=== PATIENT | male | born 1950 | race Caucasian/White ===

== ENCOUNTER 2017-07-28 19:17 | Emergency (ER) | payer MEDICARE ==
[~2017-07-28] VITALS: Ht 175.3 cm; Wt 88.5 kg
[2017-07-28 20:45] VITALS: BP 145/80
[2017-07-28] MEDS ORDERED: DEXT15LI7 PO (21:30)
[2017-07-28] MEDS ORDERED: BENZ100C PO (21:30)
--- NOTE | 2017-07-28 21:30 | PHYS DOC ---
Adult General Chief Complaint Chief Complaint: COUGH HPI HPI Patient is a 67-year-old male presents to the emergency department complaints of persisting cough. Cough is nonproductive. Patient is already on antibiotics for the last 3 days but the cough remains persistent. Patient has no other complaints. Patient denies any weight wheezing or shortness of air, his main issue is that he is having trouble sleeping because of the cough. Review of Systems Review of Systems Constitutional: Denies fever or chills [] HENT: As per history of present illness. No headache, no eye pain, no ear pain[] Respiratory: As per history of present illness Cardiovascular: No chest pain GI: Denies abdominal pain, Musculoskeletal: Denies back pain or joint pain or extremity pain or swelling Integument: Denies rash or skin lesions [] Neurologic: Denies headache, focal weakness or sensory changes [] All other systems were reviewed and found to be within normal limits, except as documented in this note. Allergies Allergies Allergies Coded Allergies Type Severity Reaction Last Updated Verified No Known Drug Allergies 07/28/17 No Physical Exam Physical Exam Constitutional: Well developed, well nourished, no acute distress, non-toxic appearance. Not ill-appearing. Not coughing in the emergency department HENT: Normocephalic, atraumatic, bilateral external ears normal, oropharynx moist, no oral exudates, nose normal. Airways patent Eyes: EOMI, conjunctiva normal, no discharge. [] Neck: Normal range of motion, no tenderness, supple, no stridor. No LAD, no meningeal signs Cardiovascular: Normal perfusion, RRR Lungs & Thorax: Bilateral breath sounds clear to auscultation, no tachypnea, no wheezing, no rales, no rhonchi Abdomen: No distention Skin: Warm, dry, no erythema, no rash. [] Back: Normal alignment Extremities: No tenderness, , ROM intact, no edema. No signs of DVT Neurologic: Alert and oriented X 3, normal motor function, no focal deficits noted. [] Psychologic: Affect normal, judgement normal, mood normal. [] EKG EKG [] Radiology/Procedures Radiology/Procedures [] Course & Med Decision Making Course & Med Decision Making Pertinent Labs and Imaging studies reviewed. (See chart for details) [] Dragon Disclaimer Dragon Disclaimer This electronic medical record was generated, in whole or in part, using a voice recognition dictation system. Departure Departure: Impression: Primary Impression: Cough Disposition: 01 HOME, SELF-CARE Condition: STABLE Referrals: PCP,NO (PCP) Please follow with your doctor for recheck and reevaluation in 3-5 days Patient Instructions: Cough, Adult Scripts Dextromethorphan Hbr (TUSSIN COUGH) 15 Mg/5 Ml Liquid 15 MG PO BID for 5 Days, LIQUID Prov: Dayne HANDLEY MD 07/28/17 Benzonatate (TESSALON PERLE) 100 Mg Capsule 1 CAP PO TID, #21 CAP Prov: Dayne HANDLEY MD 07/28/17 Dayne HANDLEY MD Jul 28, 2017 21:30
== END 2017-07-28 21:40 | disposition home or self-care (01) ==
LOC: ER 19:17
DX: R05 Cough (principal)
CPT/HCPCS: 99283